=== PATIENT | male | born 1935 | race Caucasian/White ===

== ENCOUNTER 2023-09-09 18:28 | Inpatient (IN) | payer MEDICARE ==
[~2023-09-09] VITALS: Ht 172.7 cm; Wt 70.8 kg
[2023-09-09 20:39] LABS: BASOPHILS % 0.3 % (0.0-2.0); HEMATOCRIT. 43.8 % (42.0-52.0); HEMOGLOBIN. 14.4 g/dL (14.0-18.0); LYMPHOCYTES % 7.5 % (20.0-50.0); MEAN CORPUSCULAR HEMOGLOBIN 32.1 pg (28.0-32.0); MEAN CORPUSCULAR HGB CONC 32.8 g/dL (31.0-37.0); MEAN CORPUSCULAR VOLUME 97.7 fL (80.0-94.0); MONOCYTES % 14.2 % (2.0-8.0); RED BLOOD CELL COUNT 4.48 mill/uL (4.7-6.1); RED CELL DISTRIBUTION WIDTH 15.3 % (11.6-14.6); WHITE BLOOD COUNT 11.5 x1000/uL (4.5-11.0)
[2023-09-09 20:48] LABS: DIFFERENTIAL COMMENT 1; INR 1.1; PROTHROMBIN TIME 11.6 sec (9.6-11.0)
[2023-09-09 20:54] LABS: ALANINE AMINOTRANSFERASE 18 IU/L (10-49); ALBUMIN 4.1 g/dL (3.2-4.8); ASPARTATE AMINOTRANSFERASE 26 IU/L (<34); BILIRUBIN TOTAL 1.6 mg/dL (0.1-1.0); CALCIUM 9.1 mg/dL (8.7-10.4); CARBON DIOXIDE 24 mEq/L (21-32); CHLORIDE 101 mEq/L (98-107); CREATININE 0.8 mg/dL (0.6-1.3); GLUCOSE 128 mg/dL (70-105); POTASSIUM 4.1 mEq/L (3.5-5.1); PROTEIN TOTAL 7.4 g/dL (6.0-8.3); SODIUM 135 mEq/L (136-145); UREA NITROGEN BLOOD 13 mg/dL (9-23)
[2023-09-09 21:06] LABS: MEAN PLATELET VOLUME 8.5 fl (7.4-10.4); PLATELET 137 x1000/uL (130-400)
[2023-09-09 21:15] LABS: ETHANOL BLOOD < 10 mg/dL (<10); TROPONIN I HIGH SENSITIVITY 595 ng/L (3.0-53)
[2023-09-09] MEDS ORDERED: ASPIRIN 325MG EC TABLET PO ONE (22:45)
[2023-09-10] MEDS ORDERED: ASPIRIN 325MG EC TABLET PO NR (05:45)
[2023-09-10] MEDS ORDERED: IPRATROPIUM/ALBUTEROL 0.5-3(2.5)MG/3ML NEB HHN PRN (11:15)
[2023-09-10] MEDS ORDERED: MORPHINE SULFATE 2 MG/ML CPJ (NOT FOR IM USE) IV PRN (11:15)
[2023-09-10] MEDS ORDERED: ACETAMINOPHEN 325MG TABLET PO PRN (11:15)
[2023-09-10] MEDS ORDERED: PIPERACILLIN/TAZO 3.375G/50ML 50 ML IV NR (11:45)
[2023-09-10] MEDS ORDERED: PIPERACILLIN/TAZO 3.375G/50ML 50 ML IV SCH (11:45)
[2023-09-10] MEDS ORDERED: ASPIRIN 81MG EC TABLET PO NR (13:00)
[2023-09-10] MEDS ORDERED: VANCOMYCIN 1,750 MG in DEXT 5% WATER 500 ML IV NR (13:00)
[2023-09-10] MEDS ORDERED: CLOPIDOGREL 75MG TABLET PO NR (13:00)
[2023-09-10 15:43] LABS: CALCIUM 8.5 mg/dL (8.7-10.4); CARBON DIOXIDE 23 mEq/L (21-32); CHLORIDE 103 mEq/L (98-107); CREATININE 0.8 mg/dL (0.6-1.3); GLUCOSE 131 mg/dL (70-105); POTASSIUM 3.7 mEq/L (3.5-5.1); SODIUM 136 mEq/L (136-145); UREA NITROGEN BLOOD 17 mg/dL (9-23)
[2023-09-10 15:51] LABS: TROPONIN I HIGH SENSITIVITY 289 ng/L (3.0-53)
[2023-09-10] MEDS ORDERED: NALOXONE HCL 0.4MG/ML VIAL IV PRN (16:45)
[2023-09-10 17:45] VITALS: BP 142/77; PULSE 88; RESP 20; TEMP 97.3
[2023-09-10] MEDS: CARVEDILOL 6.25 MG TABLET PO SCH (17:57)
[2023-09-10 18:00] VITALS: BP 142/77; PULSE 88; RESP 20; TEMP 97.3
[2023-09-10 20:00] VITALS: BP 128/67; PULSE 91; RESP 20; TEMP 98.1
[2023-09-11] VITALS (8 sets, daily range): BP systolic 99–128; BP diastolic 51–72; PULSE 66–91; RESP 18–20; TEMP 96.4–102.9
[2023-09-11] MEDS: ATORVASTATIN CALCIUM 10MG TABLET PO SCH ×2 (00:36→21:19)
[2023-09-11] MEDS: PIPERACILLIN/TAZO 3.375G/50ML IV SCH ×4 (02:06→21:19)
[2023-09-11 08:25] LABS: HEMATOCRIT. 37.7 % (42.0-52.0); MEAN CORPUSCULAR HEMOGLOBIN 32.3 pg (28.0-32.0); MEAN CORPUSCULAR HGB CONC 34.6 g/dL (31.0-37.0); MEAN CORPUSCULAR VOLUME 93.4 fL (80.0-94.0); MEAN PLATELET VOLUME 8.8 fl (7.4-10.4); PLATELET 114 x1000/uL (130-400); RED BLOOD CELL COUNT 4.03 mill/uL (4.7-6.1); RED CELL DISTRIBUTION WIDTH 14.8 % (11.6-14.6); WHITE BLOOD COUNT 8.4 x1000/uL (4.5-11.0)
[2023-09-11 08:39] LABS: CALCIUM 8.3 mg/dL (8.7-10.4); CARBON DIOXIDE 23 mEq/L (21-32); CHLORIDE 103 mEq/L (98-107); CREATININE 0.7 mg/dL (0.6-1.3); GLUCOSE 131 mg/dL (70-105); POTASSIUM 3.4 mEq/L (3.5-5.1); SODIUM 134 mEq/L (136-145); T4 FREE 0.97 ng/dL (0.89-1.76); THYROID STIMULATING HORMONE 1.17 uIU/mL (0.55-4.78); UREA NITROGEN BLOOD 15 mg/dL (9-23)
[2023-09-11 08:45] LABS: DIFFERENTIAL COMMENT 1
[2023-09-11 08:50] LABS: TROPONIN I HIGH SENSITIVITY 287 ng/L (3.0-53)
[2023-09-11] MEDS ORDERED: ASPIRIN 81MG EC TABLET PO SCH (09:00)
[2023-09-11] MEDS ORDERED: POTASSIUM CHLORIDE 20MEQ TABLET SR PO NR (10:00)
[2023-09-11] MEDS: ACETAMINOPHEN 325MG TABLET PO PRN ×2 (10:11→21:19)
[2023-09-11] MEDS: CARVEDILOL 6.25 MG TABLET PO SCH ×2 (10:12→17:00)
[2023-09-11] MEDS: CLOPIDOGREL 75MG TABLET PO SCH (10:12)
[2023-09-11] MEDS: ASPIRIN 81MG EC TABLET PO SCH (10:12)
[2023-09-11] MEDS: TAMSULOSIN HCL 0.4MG SR CAPSULE PO SCH (10:13)
[2023-09-11 10:46] LABS: CLARITY URINE CLEAR (CLEAR); COLOR URINE YELLOW (YELLOW); GLUCOSE URINE NEGATIVE (NEGATIVE); KETONES URINE NEGATIVE (NEGATIVE); LEUKOCYTE ESTERASE URINE NEGATIVE (NEGATIVE); NITRITE URINE NEGATIVE (NEGATIVE); OCCULT BLOOD URINE NEGATIVE (NEGATIVE); PH URINE 5.5 (4.5-8.0); PROTEIN URINE TRACE (NEGATIVE); SPECIFIC GRAVITY URINE 1.017 (1.005-1.030)
[2023-09-11] MEDS ORDERED: ONDANSETRON HCL 4MG/2ML INJ IV PRN (13:15)
[2023-09-11 13:32] LABS: SQUAMOUS EPITHELIAL CELL URINE FEW /lpf (RARE/1+)
[2023-09-11 13:33] LABS: BACTERIA URINE TRACE; RBC URINE NONE SEEN /hpf (0-2); WBC URINE NONE SEEN /hpf (0-2)
[2023-09-11 13:35] LABS: CALCIUM OXALATE CRYSTALS URINE 1+ /lpf
[2023-09-11] MEDS: VANCOMYCIN 1.25GM PMX (XELLIA) 250 ML IV SCH (15:48)
[2023-09-11 20:26] LABS: PLATELET ESTIMATE NORMAL
[2023-09-12] VITALS: BP 130/76; PULSE 78; RESP 18; TEMP 98.2
[2023-09-12 04:00] VITALS: BP 129/80; PULSE 80; RESP 20
[2023-09-12] MEDS: PIPERACILLIN/TAZO 3.375G/50ML IV SCH ×3 (05:53→21:18)
[2023-09-12 05:55] LABS: CALCIUM 9.1 mg/dL (8.7-10.4); CARBON DIOXIDE 25 mEq/L (21-32); CHLORIDE 101 mEq/L (98-107); GLUCOSE 120 mg/dL (70-105); POTASSIUM 3.7 mEq/L (3.5-5.1); SODIUM 137 mEq/L (136-145); UREA NITROGEN BLOOD 21 mg/dL (9-23)
[2023-09-12 06:11] LABS: TROPONIN I HIGH SENSITIVITY 202 ng/L (3.0-53)
[2023-09-12 07:19] LABS: BASOPHILS % 0.2 % (0.0-2.0); EOSINOPHILS % 0.3 % (0.0-5.0); LYMPHOCYTES % 9.8 % (20.0-50.0); MEAN CORPUSCULAR HEMOGLOBIN 31.7 pg (28.0-32.0); MEAN CORPUSCULAR HGB CONC 32.8 g/dL (31.0-37.0); MEAN CORPUSCULAR VOLUME 96.8 fL (80.0-94.0); MEAN PLATELET VOLUME 9.2 fl (7.4-10.4); MONOCYTES % 13.8 % (2.0-8.0); NEUTROPHILS % 75.9 % (40.0-76.0); PLATELET 144 x1000/uL (130-400); RED BLOOD CELL COUNT 4.78 mill/uL (4.7-6.1); RED CELL DISTRIBUTION WIDTH 15.4 % (11.6-14.6); WHITE BLOOD COUNT 9.1 x1000/uL (4.5-11.0)
[2023-09-12 07:52] LABS: HEMATOCRIT. 46.2 % (42.0-52.0); HEMOGLOBIN. 15.1 g/dL (14.0-18.0)
[2023-09-12 08:00] VITALS: BP 99/47; PULSE 80; RESP 18; TEMP 98.4
[2023-09-12] MEDS: ASPIRIN 81MG EC TABLET PO SCH (08:53)
[2023-09-12] MEDS: CLOPIDOGREL 75MG TABLET PO SCH (08:54)
[2023-09-12] MEDS: TAMSULOSIN HCL 0.4MG SR CAPSULE PO SCH (09:01)
[2023-09-12] MEDS: CARVEDILOL 6.25 MG TABLET PO SCH ×2 (09:01→17:43)
[2023-09-12] MEDS ORDERED: FUROSEMIDE 40MG TABLET PO NR ×2 (09:45→14:45)
[2023-09-12] MEDS ORDERED: POTASSIUM CHLORIDE 20MEQ TABLET SR PO NR ×2 (09:45→15:00)
[2023-09-12] MEDS ORDERED: LISINOPRIL 2.5MG TABLET PO NR ×2 (09:45→14:47)
[2023-09-12 12:00] VITALS: BP 110/56; PULSE 78; RESP 18; TEMP 98.2
[2023-09-12] MEDS: VANCOMYCIN 1.25GM PMX (XELLIA) 250 ML IV SCH (14:34)
[2023-09-12 16:00] VITALS: BP 106/56; PULSE 77; RESP 18; TEMP 97.5
[2023-09-12 20:00] VITALS: BP 125/62; PULSE 77; RESP 18; TEMP 97.9
[2023-09-12] MEDS: ATORVASTATIN CALCIUM 10MG TABLET PO SCH (21:18)
[2023-09-13] VITALS (7 sets, daily range): BP systolic 104–114; BP diastolic 50–63; PULSE 63–83; RESP 18–20; TEMP 97.6–98.4; O2SAT 97
[2023-09-13] MEDS ORDERED: VANCOMYCIN 1.5GM/250ML IV SCH
[2023-09-13] MEDS: PIPERACILLIN/TAZO 3.375G/50ML IV SCH ×2 (06:12→13:37)
[2023-09-13] MEDS ORDERED: POTASSIUM CHLORIDE 20MEQ TABLET SR PO SCH (09:00)
[2023-09-13] MEDS: TAMSULOSIN HCL 0.4MG SR CAPSULE PO SCH (09:00)
[2023-09-13] MEDS ORDERED: FUROSEMIDE 40MG TABLET PO SCH (09:00)
[2023-09-13] MEDS ORDERED: LISINOPRIL 2.5MG TABLET PO SCH (09:00)
[2023-09-13] MEDS: ASPIRIN 81MG EC TABLET PO SCH (09:34)
[2023-09-13] MEDS: CLOPIDOGREL 75MG TABLET PO SCH (09:34)
[2023-09-13] MEDS: CARVEDILOL 6.25 MG TABLET PO SCH ×2 (09:45→17:00)
[2023-09-13 11:25] LABS: BASOPHILS % 0.1 % (0.0-2.0); EOSINOPHILS % 1.3 % (0.0-5.0); HEMATOCRIT. 37.1 % (42.0-52.0); HEMOGLOBIN. 12.3 g/dL (14.0-18.0); LYMPHOCYTES % 8.4 % (20.0-50.0); MEAN CORPUSCULAR HEMOGLOBIN 31.8 pg (28.0-32.0); MEAN CORPUSCULAR HGB CONC 33.1 g/dL (31.0-37.0); MEAN CORPUSCULAR VOLUME 95.9 fL (80.0-94.0); MEAN PLATELET VOLUME 8.5 fl (7.4-10.4); MONOCYTES % 14.5 % (2.0-8.0); NEUTROPHILS % 75.7 % (40.0-76.0); PLATELET 129 x1000/uL (130-400); RED BLOOD CELL COUNT 3.87 mill/uL (4.7-6.1); RED CELL DISTRIBUTION WIDTH 15.3 % (11.6-14.6); WHITE BLOOD COUNT 7.3 x1000/uL (4.5-11.0)
[2023-09-13 12:06] LABS: CARBON DIOXIDE 23 mEq/L (21-32); CHLORIDE 102 mEq/L (98-107); CREATININE 0.7 mg/dL (0.6-1.3); GLUCOSE 160 mg/dL (70-105); POTASSIUM 3.4 mEq/L (3.5-5.1); SODIUM 134 mEq/L (136-145); UREA NITROGEN BLOOD 15 mg/dL (9-23)
[2023-09-13] MEDS ORDERED: POTASSIUM CHLORIDE 20MEQ TABLET SR PO NR (16:00)
[2023-09-13] MEDS ORDERED: AMOX600S39 PO (16:00)
== END 2023-09-13 17:25 | disposition home or self-care (01) | DRG 871 ==
LOC: ER 18:28 → 5WST 09-10 01:57 → 7WST 09-10 16:28
PROVIDERS: ADMIT Preventive Medicine Clinical Informatics; ATTEND Preventive Medicine Clinical Informatics
DX: A41.9 Sepsis, unspecified organism (principal); G93.41 Metabolic encephalopathy; I21.4 Non-ST elevation (NSTEMI) myocardial infarction; I11.0 Hypertensive heart disease with heart failure; I25.10 Atherosclerotic heart disease of native coronary artery without angina pectoris; I50.9 Heart failure, unspecified; Z66 Do not resuscitate; J44.9 Chronic obstructive pulmonary disease, unspecified; E78.5 Hyperlipidemia, unspecified; E87.6 Hypokalemia; Z87.891 Personal history of nicotine dependence; Z79.02 Long term (current) use of antithrombotics/antiplatelets; Z79.82 Long term (current) use of aspirin; Z86.74 Personal history of sudden cardiac arrest; Z95.810 Presence of automatic (implantable) cardiac defibrillator; Z79.899 Other long term (current) drug therapy
CPT/HCPCS: 36415; 71045; 80048; 80053; 80202; 80320; 81003; 83880; 84145; 84439; 84443; 84484; 85025; 93005; 93306; 99285; J2543; J3370; J7060; G0480